=== PATIENT | male | born 1970 | race Caucasian/White ===

== ENCOUNTER 2023-08-31 15:03 | Outpatient (CLI) | payer OTHER, SELFPAY | END 2023-08-31 15:04 | disposition home or self-care (01) | PROVIDERS: PCP Family Medicine; Visit Provider Family Medicine | DX: M25.541 Pain in joints of right hand (principal); W57.XXXA Bitten or stung by nonvenomous insect and other nonvenomous arthropods, initial encounter | CPT/HCPCS: 86431; 86618 ==